=== PATIENT | male | born 1950 | race American Indian/Alaskan Native ===

== ENCOUNTER 2019-03-17 14:33 | Emergency (ER) | payer SELFPAY ==
--- NOTE | 2019-03-17 15:17 | Emergency Department Report ---
Blank Doc - Documentation Documentation: 68-year-old male that presents with clogged urinary cath. This initial assessment/diagnostic orders/clinical plan/treatment(s) is/are subject to change based on patient's health status, clinical progression and re- assessment by fellow clinical providers in the ED. Further treatment and workup at subsequent clinical providers discretion. Patient/guardians urged not to elope from the ED as their condition may be serious if not clinically assessed and managed. Initial orders include: 1- Patient sent to [facility] for further evaluation and treatment 2- UA
[2019-03-17 18:21] LABS: Bilirubin,Urine NEG (Negative); Blood,Urine LG (Negative); Color,Urine Amber (Yellow); Urobilinogen,Urine < 2.0 mg/dL (<2.0)
[2019-03-17 18:23] LABS: RBC,Urine > 182.0 /HPF (0.0-6.0); WBC,Urine > 182.0 /HPF (0.0-6.0)
--- NOTE | 2019-03-17 18:28 | Emergency Department Report ---
ED Male HPI - General Chief complaint: Urogenital-Male Stated complaint: CATH PAIN/EXTREME Time Seen by Provider: 03/17/19 15:16 Source: patient Mode of arrival: Ambulatory Limitations: No Limitations - History of Present Illness Initial comments: This is a 68-year-old -[place] male who presents to the emergency room with drainage from Alcantar catheter and penile pain for several days. Patient reports Alcantar was placed while in residential 32 days ago. He reports history of right kidney cancer and lung cancer. He half an appointment with oncology and urology a gradient April 03. He also reports some pelvic pain that is intermittent. Reports penile pain is improved when he pulled on catheter. He was reports pain pressure sensation that is constant. Onset/Timin -: days(s) Location: penis Radiation: none Severity: severe Severity scale (0 -10): 10 Quality: stabbing Consistency: constant Improves with: none Worsens with: urination indwelling catheter urinary retention - Related Data Previous Rx's Medication Instructions Recorded Last Taken Type Ciprofloxacin HCl [Ciprofloxacin 500 mg PO Q12HR #14 tab 03/17/19 Unknown Rx TAB] Allergies Allergy/AdvReac Type Severity Reaction Status Date / Time No Known Allergies Allergy Unverified 03/17/19 14:38 ED Review of Systems ROS: Stated complaint: CATH PAIN/EXTREME Other details as noted in HPI Constitutional: denies: chills, fever Respiratory: denies: cough, shortness of breath, wheezing Cardiovascular: denies: chest pain, palpitations Gastrointestinal: abdominal pain (pelvic pain). denies: nausea, diarrhea Genitourinary: denies: urgency, dysuria Skin: denies: rash, lesions Neurological: denies: headache, weakness, paresthesias Psychiatric: denies: anxiety, depression ED Past Medical Hx - Past Medical History Previous Medical History?: Yes Additional medical history: Kidney cancer, lung cancer - Surgical History Past Surgical History?: Yes Additional Surgical History: Hernia repair - Social History Smoking Status: Former Smoker Substance Use Type: None - Medications Home Medications: Home Medications Medication Instructions Recorded Confirmed Last Taken Type Ciprofloxacin HCl [Ciprofloxacin 500 mg PO Q12HR #14 tab 03/17/19 Unknown Rx TAB] ED Physical Exam - General Limitations: No Limitations General appearance: alert, in no apparent distress - Respiratory Respiratory exam: Present: normal lung sounds bilaterally. Absent: respiratory distress - Cardiovascular Cardiovascular Exam: Present: regular rate, normal rhythm. Absent: systolic murmur, diastolic murmur, rubs, gallop - GI/Abdominal GI/Abdominal exam: Present: soft, normal bowel sounds. Absent: distended, tenderness, guarding, rebound, rigid - exam: Absent: testicular tenderness, scrotal swelling External exam: Present: normal external exam - Back Exam Back exam: Absent: CVA tenderness (R) - Neurological Exam Neurological exam: Present: alert, oriented X3 - Psychiatric Psychiatric exam: Present: normal affect, normal mood - Skin Skin exam: Present: warm, dry, intact, normal color. Absent: rash ED Course Vital Signs 03/17/19 03/17/19 15:17 18:42 Temperature 98.4 F Pulse Rate 112 H 87 Respiratory 22 16 Rate Blood Pressure 163/98 Blood Pressure 156/94 [Right] O2 Sat by Pulse 99 99 Oximetry ED Medical Decision Making - Lab Data Lab Results 03/17/19 Range/Units 18:09 Urine Color Danielle (Yellow) Urine Turbidity Cloudy (Clear) Urine pH 6.0 (5.0-7.0) Ur Specific [place] 1.028 (1.003-1.030) Urine Protein 100 mg/dl (Negative) mg/dL Urine Glucose (UA) Neg (Negative) mg/dL Urine Ketones Neg (Negative) mg/dL Urine Blood Lg (Negative) Urine Nitrite Neg (Negative) Urine Bilirubin Neg (Negative) Urine Urobilinogen < 2.0 (<2.0) mg/dL Ur Leukocyte Esterase Lg (Negative) Urine WBC (Auto) > 182.0 H (0.0-6.0) /HPF Urine RBC (Auto) > 182.0 (0.0-6.0) /HPF Urine WBC Clumps 3+ /HPF - Medical Decision Making Patient was examined by me. Patient is nontoxic appearing and stable. Vitals are normal. Obtained urinalysis with large amount of leukocyte Estrace and elevated WBC. Alcantar catheter changed by nursing staff in triage. Patient and nondistended on focal exam and nontender. Patient reports pain resolved. Start Cipro for acute cystitis. Instructed to follow up with urology or return to the ER with worsening symptoms. Patient discharged home in stable condition. Critical care attestation.: If time is entered above; I have spent that time in minutes in the direct care of this critically ill patient, excluding procedure time. ED Disposition Clinical Impression: Urinary retention, Encounter for Alcantar catheter replacement, Chronic indwelling Alcantar catheter Acute cystitis Qualifiers: Hematuria presence: with hematuria Qualified Code(s): N30.01 - Acute cystitis with hematuria Disposition: TO HOME OR SELFCARE Is pt being admited?: No Condition: Stable Instructions: Alcantar Catheter Placement and Care (ED), Urinary Leg Bag (GEN) Additional Instructions: Keep your appointment with urology at [facility] for next month. Prescriptions: Ciprofloxacin HCl [Ciprofloxacin TAB] 500 mg PO Q12HR #14 tab Referrals: [facility] [Outside] - 3-5 Days [facility] [Provider Group] - 3-5 Days Time of Disposition: 18:31
[2019-03-17 18:43] VITALS: BP 156/94
== END 2019-03-17 18:48 | disposition home or self-care (01) ==
LOC: ED 14:33
DX: N30.00 Acute cystitis without hematuria (principal); R33.9 Retention of urine, unspecified; Z96.0 Presence of urogenital implants; Z87.891 Personal history of nicotine dependence; Z79.899 Other long term (current) drug therapy
CPT/HCPCS: 51702; 81001

== ENCOUNTER 2019-05-05 08:50 | Emergency (ER) | payer SELFPAY ==
[2019-05-05 09:15] VITALS: BP 131/83
[2019-05-05 10:47] LABS: Basophils % (Auto) 0.7 % (0.0-1.8); Eosinophils # (Auto) 0.2 K/mm3 (0.0-0.4); Eosinophils % (Auto) 3.5 % (0.0-4.3); Hematocrit 28.4 % (35.5-45.6); Hemoglobin 9.1 gm/dl (11.8-15.2); Lymphocytes % (Auto) 20.9 % (13.4-35.0); Mean Corpuscular HGB Conc 32 % (32-34); Mean Corpuscular Volume 78 fl (84-94); Monocytes # (Auto) 0.5 K/mm3 (0.0-0.8); Monocytes % (Auto) 9.9 % (0.0-7.3); Platelet Count 294 K/mm3 (140-440); Red Blood Count 3.65 M/mm3 (3.65-5.03)
[2019-05-05 11:03] LABS: Albumin 3.9 g/dL (3.9-5); Calcium 9.1 mg/dL (8.4-10.2)
[2019-05-05] MEDS ORDERED: oxyCODONE /ACETAMINOPHEN 5-325MG TAB PO ONE (14:05)
--- NOTE | 2019-05-05 15:10 | Emergency Department Report ---
ED Male HPI - General Chief complaint: Urogenital-Male Stated complaint: LT SIDE PAIN Time Seen by Provider: 05/05/19 13:50 Source: patient Mode of arrival: Ambulatory Limitations: No Limitations - History of Present Illness Initial comments: 69 yo male with indwelling atwood cather c/o dysuria, cloudy urine. He has PMH of right Kidney cancer. Currently being followed at [facility] last seen 1 month ago at [facility]. His next appointment is on 05/15/19 at [facility] with Urologist. He denies fever and chills. Currently out of pain medications. He has chronic lymphedema of bilateral lower extremities. Radiation: none Severity: moderate Consistency: constant Improves with: none Worsens with: urination swelling, dysuria. denies: rash, fever, nausea/vomiting - Related Data Previous Rx's Medication Instructions Recorded Last Taken Type Ciprofloxacin HCl [Ciprofloxacin 500 mg PO Q12HR #14 tab 05/05/19 Unknown Rx TAB] Fluconazole [Diflucan TAB] 150 mg PO ONCE #1 tablet 05/05/19 Unknown Rx oxyCODONE /ACETAMINOPHEN [Percocet 1 tab PO Q4HR #16 tab 05/05/19 Unknown Rx 5/325] Allergies Allergy/AdvReac Type Severity Reaction Status Date / Time No Known Allergies Allergy Unverified 03/17/19 14:38 ED Review of Systems ROS: Stated complaint: LT SIDE PAIN Other details as noted in HPI Comment: All other systems reviewed and negative Constitutional: no symptoms reported Respiratory: no symptoms reported Cardiovascular: denies: chest pain Gastrointestinal: denies: abdominal pain, nausea, vomiting Genitourinary: dysuria. denies: testicular pain Neurological: denies: headache, weakness, numbness, paresthesias, confusion ED Past Medical Hx - Past Medical History Previous Medical History?: Yes Hx of Cancer: Yes (kidney cancer) Additional medical history: Kidney cancer, lung cancer - Surgical History Past Surgical History?: Yes Additional Surgical History: Hernia repair - Social History Smoking Status: Former Smoker Substance Use Type: None - Medications Home Medications: Home Medications Medication Instructions Recorded Confirmed Last Taken Type Ciprofloxacin HCl [Ciprofloxacin 500 mg PO Q12HR #14 tab 05/05/19 Unknown Rx TAB] Fluconazole [Diflucan TAB] 150 mg PO ONCE #1 tablet 05/05/19 Unknown Rx oxyCODONE /ACETAMINOPHEN [Percocet 1 tab PO Q4HR #16 tab 05/05/19 Unknown Rx 5/325] ED Physical Exam - General Limitations: No Limitations General appearance: alert, in no apparent distress - Head Head exam: Present: atraumatic - Eye Eye exam: Present: normal appearance - ENT ENT exam: Present: normal exam, mucous membranes moist - Neck Neck exam: Present: normal inspection - Respiratory Respiratory exam: Present: normal lung sounds bilaterally. Absent: respiratory distress, wheezes - Cardiovascular Cardiovascular Exam: Present: regular rate, normal rhythm, normal heart sounds - GI/Abdominal GI/Abdominal exam: Present: distended, normal bowel sounds. Absent: tenderness, guarding, rebound - Rectal Rectal exam: Present: deferred - exam: Present: scrotal swelling (chronic swelling , [address] - Extremities Exam Extremities exam: Present: other (Edematous from waist down bilaterally) - Psychiatric Psychiatric exam: Present: normal affect - Skin Skin exam: Present: warm, dry, intact. Absent: cyanosis, diaphoretic, erythema, pallor, ecchymosis ED Course Vital Signs 05/05/19 09:13 Temperature 98.5 F Pulse Rate 99 H Respiratory 18 Rate Blood Pressure 131/83 O2 Sat by Pulse 99 Oximetry - Reevaluation(s) Reevaluation #1: 05/05/19 17:28 Patient feeling better anxious to go home. Urine resulting pending ED Medical Decision Making - Lab Data Result diagrams: 05/05/19 10:12 05/05/19 10:12 - Medical Decision Making 69 yo male with known hx of Kidney cancer present to ER c/o dysuria and being out of pain medication. He has indwelling atwood catheter last changed about 2 months ago. He is currently being treated at [facility]. His appointment with Urologist is on 05/15/19. Today Atwood catheter changed new 18fr atwood in place. +UTI Cipro 500 mg po q12 x 7 days Percocet prn pain. Follow up with [facility] Critical care attestation.: If time is entered above; I have spent that time in minutes in the direct care of this critically ill patient, excluding procedure time. ED Disposition Clinical Impression: Indwelling Atwood catheter present, Yeast UTI UTI (urinary tract infection) Qualifiers: Urinary tract infection type: acute cystitis Hematuria presence: without hematuria Qualified Code(s): N30.00 - Acute cystitis without hematuria Disposition: DC- TO HOME OR SELFCARE Is pt being admited?: No Does the pt Need Aspirin: No Condition: Stable Instructions: Urinary Tract Infection in Men (ED), Atwood Catheter Placement and Care (ED) Additional Instructions: Follow up with UROLOGIST SCHEDULED ON 05/15/19 at [facility]. Rest keep yourself well hydrate. Seek immediate medical attention for fever chest pain or sob. Prescriptions: Ciprofloxacin HCl [Ciprofloxacin TAB] 500 mg PO Q12HR #14 tab Fluconazole [Diflucan TAB] 150 mg PO ONCE #1 tablet oxyCODONE /ACETAMINOPHEN [Percocet 5/325] 1 tab PO Q4HR #16 tab Referrals: PRIMARY CARE, [Primary Care Provider] - 3-5 Days
[2019-05-05 18:14] LABS: Bacteria,Urine 4+ /HPF (Negative); Bilirubin,Urine NEG (Negative); Blood,Urine MOD (Negative); Color,Urine Yellow (Yellow); Mucus,Urine FEW /HPF; Urobilinogen,Urine < 2.0 mg/dL (<2.0)
== END 2019-05-05 18:29 | disposition home or self-care (01) ==
LOC: ED 08:50
DX: N39.0 Urinary tract infection, site not specified (principal)
CPT/HCPCS: 36415; 51702; 80053; 81001; 85025; 87076; 87086; 87186; 99283